=== PATIENT | female | born 1965 | race Hispanic/Latino ===

== ENCOUNTER → 2021-03-30 | Outpatient (CLI) | payer BC ==
[~2021-03-30] MED LIST: NORCO 7.5-3251 EACH PO; SYNTHROID100 MCG PO
== END ==
LOC: SLEEP 19:21
PROVIDERS: ATTEND Otolaryngology
DX: G47.33 Obstructive sleep apnea (adult) (pediatric) (principal); Z20.822 Contact with and (suspected) exposure to COVID-19
CPT/HCPCS: 95806; U0002